=== PATIENT | male | born 2000 | race Caucasian/White ===

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

== ENCOUNTER 2022-10-01 22:52 | Emergency (ER) | payer OTHER ==
[~2022-10-01] VITALS: Ht 170.2 cm; Wt 59.0 kg
[~2022-10-01 22:52] MED LIST: EPIPEN 2-P0.3 MG/0.3 IM
--- OUTSIDE RECORDS SUMMARY | 2022-10-01 23:01 | XMS ---
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 EAlon V[facility] (12 MO.) [facility] TOTAL 2 NOTE: Visits indicate total known visits. ED/UCC VISIT TRACKING (12 MO.) 10/01/2022 22:53 [facility] [address] [place] TYPE: Emergency COMPLAINT: - ETOH 09/21/2022 22:40 [facility] [place] TYPE: Emergency DIAGNOSES: - Unspecified abdominal pain - Abdominal Pain - righ side abd pain INPATIENT VISIT TRACKING (12 MO.) No inpatient visits to display in this time frame [email or web address]
[2022-10-01] MEDS ORDERED: MELATONIN3 MG PO (23:46)
[2022-10-02 01:43] VITALS: BP 115/67
== END 2022-10-02 01:45 | disposition home or self-care (01) ==
LOC: ED 22:52
DX: E86.0 Dehydration (principal); F10.129 Alcohol abuse with intoxication, unspecified; Z88.8 Allergy status to other drugs, medicaments and biological substances; Z79.899 Other long term (current) drug therapy
CPT/HCPCS: 36415; 80053; 81003; 85025; G0480; J3411; J7030; J7121

== ENCOUNTER 2022-12-28 02:30 | Emergency (ER) | payer OTHER ==
[~2022-12-28 02:30] MED LIST changes: +MELATONIN3 MG PO
[2022-12-28 02:52] LABS: BASOPHILS 0.3 % (0-2); EOSINOPHILS 0.4 % (0-6); HEMATOCRIT 50.4 % (35.0-50.0); HEMOGLOBIN 17.1 g/dL (12.0-18.0); MCH 30.9 (27-36); MCHC 33.9 g/dl (30-36); MCV 91.2 fl (81-99); MONOCYTES 7.2 % (0-12); NEUTROPHILS 76.1 % (39-80); PLATELET COUNT 238 K/uL (140-440); RBC 5.53 M/ul (4.3-5.7); RDW 12.9 (10.5-15.0)
[2022-12-28 03:08] LABS: ALBUMIN 4.3 g/dL (3.4-5.0); ALBUMIN/GLOBULIN RATIO 1.43 (1.1-2.4); ALCOHOL, MEDICAL <3 ng/dL (<3); ALKALINE PHOSPHATASE 62 U/L (46-116); ALT (SGPT) 35 U/L (14-59); ANION GAP 16.7 (7-21); AST (SGOT) 37 U/L (15-37); BILIRUBIN, TOTAL 1.2 ng/dL (0.2-1.0); BUN/CREATININE RATIO 12.93 (6.0-28.6); CALCIUM 9.2 mg/dL (8.5-10.1); CARBON DIOXIDE 26 mmol/L (21-32); CHLORIDE 101 mmol/L (98-107); CREATININE, SERUM 1.16 mg/dL (0.70-1.30); GLOMERULAR FILTRATION RATE,EST 92 mL/min (>60); POTASSIUM 3.7 mmol/L (3.5-5.1); PROTEIN, TOTAL 7.3 g/dL (6.4-8.2); UREA NITROGEN 15 mg/dL (7-18)
[2022-12-28 03:27] LABS: ABO A; ANTIBODY SCREEN NEGATIVE; RH POSITIVE
[2022-12-28 04:21] LABS: AMPHETAMINES, UR NEGATIVE (NEGATIVE); BARBITURATES, UR NEGATIVE (NEGATIVE); BENZODIAZEPINES, UR NEGATIVE (NEGATIVE); BUPRENORPHINE,UR NEGATIVE (NEGATIVE); COCAINE, UR NEGATIVE (NEGATIVE); MARIJUANA (THC), UR NEGATIVE (NEGATIVE); MDMA, UR NEGATIVE (NEGATIVE); METHADONE, UR NEGATIVE (NEGATIVE); METHAMPHETAMINE, UR NEGATIVE (NEGATIVE); OPIATES, UR POSITIVE (NEGATIVE); OXYCODONE, UR NEGATIVE (NEGATIVE); PHENCYCLIDINE, UR NEGATIVE (NEGATIVE); TRICYCLIC ANTIDEPRESSANT, UR NEGATIVE (NEGATIVE)
[2022-12-28] MEDS ORDERED: HYDROCODON-ACE1 EA10 PO (04:58)
[2022-12-28] MEDS ORDERED: SILVADENE20 GM TOP (05:20)
[2022-12-28 06:08] VITALS: BP 119/71
== END 2022-12-28 06:08 | disposition home or self-care (01) ==
LOC: ED 02:30
PROVIDERS: Family Medicine
DX: S16.1XXA Strain of muscle, fascia and tendon at neck level, initial encounter (principal); S46.912A Strain of unspecified muscle, fascia and tendon at shoulder and upper arm level, left arm, initial encounter; S30.810A Abrasion of lower back and pelvis, initial encounter; S50.811A Abrasion of right forearm, initial encounter; V89.2XXA Person injured in unspecified motor-vehicle accident, traffic, initial encounter; Z88.8 Allergy status to other drugs, medicaments and biological substances; Z79.899 Other long term (current) drug therapy; Z23 Encounter for immunization
CPT/HCPCS: 36415; 70450; 71260; 72125; 72131; 73030; 73110; 74177; 80053; 85025; 86850; 86900; 86901; 87502; 90715; A9270; G0480; J2270; J7121; Q9967; U0002

== ENCOUNTER 2023-02-19 01:22 | Emergency (ER) | payer OTHER ==
[~2023-02-19] VITALS: Ht 170.2 cm; Wt 56.0 kg
[~2023-02-19 01:22] MED LIST changes: +HYDROCODON-ACE1 EA10 PO; +SILVADENE20 GM TOP
[2023-02-19 01:50] LABS: BASOPHILS 0.3 % (0-2); EOSINOPHILS 1.5 % (0-6); HEMATOCRIT 49.3 % (35.0-50.0); HEMOGLOBIN 17.2 g/dL (12.0-18.0); LYMPHOCYTES 33.1 % (24-44); MCH 31.5 (27-36); MCHC 34.9 g/dl (30-36); MCV 90.4 fl (81-99); MONOCYTES 9.4 % (0-12); NEUTROPHILS 55.7 % (39-80); PLATELET COUNT 245 K/uL (140-440); RBC 5.45 M/ul (4.3-5.7); RDW 12.4 (10.5-15.0)
[2023-02-19 02:07] LABS: ALBUMIN 4.3 g/dL (3.4-5.0); ALBUMIN/GLOBULIN RATIO 1.54 (1.1-2.4); ANION GAP 12.6 (7-21); BILIRUBIN, TOTAL 0.5 ng/dL (0.2-1.0); BUN/CREATININE RATIO 15.31 (6.0-28.6); CALCIUM 8.9 mg/dL (8.5-10.1); CREATININE, SERUM 1.11 mg/dL (0.70-1.30); MAGNESIUM 2.1 mg/dL (1.8-2.4); POTASSIUM 3.6 mmol/L (3.5-5.1); PROTEIN, TOTAL 7.1 g/dL (6.4-8.2)
[2023-02-19 02:46] VITALS: BP 121/73
--- NOTE | 2023-02-19 22:15 | EKG ---
[facility] [address] [place] [address] Signed Sinus bradycardia with sinus arrhythmia Otherwise normal ECG No previous ECGs available Confirmed by Klever Lujan MD () on 02/19/2023 10:14:53 PM Electronically Signed By: KLEVER LUJAN MD 02/19/23 2215 PATIENT NAME: RICARDA CROSS Electrocardiogram DATE OF : [birth year] PHYSICIAN: KLEVER LUJAN MD REPORT #: [id number] REPORT IS CONFIDENTIAL AND NOT TO BE RELEASED WITHOUT AUTHORIZATION
== END 2023-02-19 02:47 | disposition home or self-care (01) ==
LOC: ED 01:22
PROVIDERS: Family Medicine
DX: R07.89 Other chest pain (principal); Z88.8 Allergy status to other drugs, medicaments and biological substances; Z79.899 Other long term (current) drug therapy
CPT/HCPCS: 36415; 71045; 80053; 83735; 84484; 85025; 85379; 93005; 93010; J2270; J2405

== ENCOUNTER 2023-11-07 22:12 | Emergency (ER) | payer OTHER ==
[~2023-11-07] VITALS: Ht 170.2 cm; Wt 56.6 kg
[2023-11-07] MEDS ORDERED: ondansetron HCL 4 MG/2 ML VIAL IV ONE (22:30)
[2023-11-07 22:57] LABS: HEMOGLOBIN 17.1 g/dL (12.0-18.0)
[2023-11-07 22:59] LABS: BASOPHILS 0.3 % (0-2); EOSINOPHILS 0.9 % (0-6); HEMATOCRIT 49.2 % (35.0-50.0); LYMPHOCYTES 20.9 % (24-44); MCH 30.8 (27-36); MCHC 34.7 g/dl (30-36); MCV 88.9 fl (81-99); MONOCYTES 9.5 % (0-12); NEUTROPHILS 68.4 % (39-80); PLATELET COUNT 229 K/uL (140-440); RBC 5.54 M/ul (4.3-5.7); RDW 12.2 (10.5-15.0)
[2023-11-07] MEDS ORDERED: LACTATED RINGER'S 1,000 ML IV ONE (23:00)
[2023-11-07] MEDS ORDERED: KETOROLAC TROMETHAMINE 30 MG/ML VIAL IV ONE (23:00)
[2023-11-07 23:10] LABS: ALBUMIN 4.4 g/dL (3.4-5.0); ALBUMIN/GLOBULIN RATIO 1.57 (1.1-2.4); ANION GAP 14.5 (7-21); BILIRUBIN, TOTAL 1.1 ng/dL (0.2-1.0); BUN/CREATININE RATIO 15.78 (6.0-28.6); CALCIUM 9.8 mg/dL (8.5-10.1); CREATININE, SERUM 1.14 mg/dL (0.70-1.30); MAGNESIUM 1.9 mg/dL (1.8-2.4); POTASSIUM 3.5 mmol/L (3.5-5.1); PROTEIN, TOTAL 7.2 g/dL (6.4-8.2)
[2023-11-07 23:43] LABS: BILIRUBIN, URINE NEGATIVE (negative); BLOOD/HGB, URINE NEGATIVE (Negative); KETONE, URINE SMALL (Negative); LEUK ESTERASE, URINE NEGATIVE (negative); NITRITE, URINE NEGATIVE (negative); PH, URINE 7.5 (5-7)
[2023-11-08 00:53] VITALS: BP 105/41
== END 2023-11-08 01:14 | disposition home or self-care (01) ==
LOC: ED 22:12
PROVIDERS: Internal Medicine
DX: N50.811 Right testicular pain (principal); N50.812 Left testicular pain; Z88.8 Allergy status to other drugs, medicaments and biological substances
CPT/HCPCS: 36415; 76870; 80053; 81003; 83690; 83735; 85025; 96374; 96375; 99284-25; J1885; J2405; J7121

== ENCOUNTER 2023-11-09 00:41 | Emergency (ER) | payer OTHER ==
[~2023-11-09] VITALS: Ht 170.2 cm; Wt 56.6 kg
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
[2023-11-09] MEDS ORDERED: KETOROLAC TROMETHAMINE 30 MG/ML VIAL IV ONE (01:00)
[2023-11-09] MEDS ORDERED: DOXYCYCLINE HYCLATE 100 MG HOME.PACK PO ONE ×2 (03:25→05:00)
[2023-11-09 03:30] VITALS: BP 110/69
[2023-11-09 05:40] LABS: BILIRUBIN, URINE NEGATIVE (negative); BLOOD/HGB, URINE NEGATIVE (Negative); KETONE, URINE NEGATIVE (Negative); LEUK ESTERASE, URINE NEGATIVE (negative); NITRITE, URINE NEGATIVE (negative)
[2023-11-09 05:41] LABS: N. GONORRRHOEAE BY PCR NOT DETECTED (NOT DETECT)
[2023-11-09 05:46] LABS: AMPHETAMINES, URINE NEGATIVE (NEGATIVE); BARBITURATES, URINE NEGATIVE (NEGATIVE); BENZODIAZEPINE, URINE NEGATIVE (NEGATIVE)
[2023-11-09 05:47] LABS: BUPRENORPHINE, URINE NEGATIVE (NEGATIVE); CANNABINOID, URINE NEGATIVE (NEGATIVE); COCAINE, URINE NEGATIVE (NEGATIVE); ECSTASY, URINE NEGATIVE (NEGATIVE); FENTANYL, URINE NEGATIVE (NEGATIVE); METHADONE, URINE NEGATIVE (NEGATIVE); OPIATES, URINE POSITIVE (NEGATIVE); OXYCODONE, URINE NEGATIVE (NEGATIVE); PHENCYCLIDINE, URINE NEGATIVE (NEGATIVE)
== END 2023-11-09 03:30 | disposition home or self-care (01) ==
LOC: ED 00:41
PROVIDERS: Internal Medicine
DX: N45.1 Epididymitis (principal); R10.30 Lower abdominal pain, unspecified; Z79.899 Other long term (current) drug therapy; Z88.8 Allergy status to other drugs, medicaments and biological substances
CPT/HCPCS: 74177; 80307; 81003; 99284-25; A9270; J1885; Q9967